=== PATIENT | female | born 1960 | race Caucasian/White ===

== ENCOUNTER 2017-06-05 13:03 | Day surgery (SDC) | payer OTHER ==
[~2017-06-05] VITALS: Ht 152.4 cm; Wt 77.0 kg
[~2017-06-05 13:03] MED LIST: ALBUTEROL2.5 MG/3 M IH; AZELASTINE137 MCG/0. BOTH NARES; DICLOFENAC SODI75 MG PO; FLOVENT DISKUS1 DISK IH; LISINOPRIL5 MG PO; MOTRIN800 MG PO; NASONEX17 GM BOTH NARES; PRILOSEC20 MG PO; PROAIR HFA8.5 GM IH; TYLENOL EXTRA500 MG PO
[2017-06-05 13:45] VITALS: BP 137/91
[2017-06-05 17:14] VITALS: BP 134/72
[2017-06-05] MEDS ORDERED: NORCO 5/3251 TABLET PO (17:47)
[2017-06-05 18:16] VITALS: BP 140/73
== END 2017-06-05 18:23 | disposition home or self-care (01) ==
LOC: SDC 13:03
PROC: 0WUF0JZ Supplement Abdominal Wall with Synthetic Substitute, Open Approach (ICD-10-PCS; principal; 2017-06-05)
DX: K43.0 Incisional hernia with obstruction, without gangrene (principal); J45.909 Unspecified asthma, uncomplicated; Z85.828 Personal history of other malignant neoplasm of skin; Z68.33 Body mass index [BMI] 33.0-33.9, adult; E66.9 Obesity, unspecified; Z88.1 Allergy status to other antibiotic agents; Z88.2 Allergy status to sulfonamides; Z80.3 Family history of malignant neoplasm of breast; Z82.49 Family history of ischemic heart disease and other diseases of the circulatory system; Z82.0 Family history of epilepsy and other diseases of the nervous system
CPT/HCPCS: C1781; J0690; J1885; J2405; J3010; S0020